=== PATIENT | male | born 1985 | race Hispanic/Latino ===

== ENCOUNTER 2019-08-22 18:20 | Emergency (ER) | payer SELFPAY ==
[2019-08-22 19:08] LABS: Absolute Lymphocytes (CBC) 1.3 K/uL (0.7-4.9); Basophils % 0.4 % (0-1.3); Lymphocytes % 12.9 % (15.3-44.8); MPV 7.9 fL (7.6-11.3); RBC Red Blood Cell Count 4.83 M/uL (4.33-5.43)
[2019-08-22 19:26] LABS: ALT/SGPT 91 U/L (12-78); AST/SGOT 80 U/L (15-37); Albumin 4.2 g/dL (3.4-5.0); Alkaline Phosphatase 104 U/L (45-117); BUN Blood Urea Nitrogen 12 mg/dL (7-18); Bicarbonate 30 mmol/L (21-32); Bilirubin Direct 0.3 mg/dL (0-0.2); Bilirubin Total 0.7 mg/dL (0.2-1.0); Glucose Level 137 mg/dL (74-106); Lipase 131 U/L (73-393); Potassium 3.3 mmol/L (3.5-5.1); Protein, Total 7.7 g/dL (6.4-8.2); Sodium Level 140 mmol/L (136-145)
--- NOTE | 2019-08-22 19:56 | RAD REPORT ---
EXAM DESCRIPTION: CTAbdomen Pelvis W Contrast - 08/22/2019 7:46 pm CLINICAL HISTORY: Abdominal pain. ABD PAIN COMPARISON: <Comparisons> TECHNIQUE: Biphasic CT imaging of the abdomen and pelvis was performed with 100 ml non-ionic IV cont rast. All CT scans are performed using dose optimization technique as appropriate and may include automated exposure control or mA/KV adjustment according to patient size. FINDINGS: The lung bases are clear.Cholelithiasis. The liver, spleen, pancreas, adrenal glands and kidneys are within normal limits. No bowel obstruction, free air, free fluid or abscess. Mild sigmoid diverticulosis without diverticul itis. The appendix is not identified as a discrete structure, however, no secondary findings of appen dicitis are identified. No evidence of significant lymphadenopathy. No suspicious bony findings. IMPRESSION: Cholelithiasis Sigmoid diverticulosis without diverticulitis.
--- NOTE | 2019-08-22 20:02 | ER ---
Nurse's Notes [facility] Name: Fahad Burk Age: 33 yrs Sex: Male : 1985 Arrival Date: 08/22/2019 Time: 18:22 Bed 7 Private MD: Diagnosis: Cholelithiasis Presentation: 08/22 18:32 Presenting complaint: Patient states: "Earlier I was having cramps in my back so I took aj1 Aleve and a hot shower, and in the shower I got dizzy and my stomach started hurting". Transition of care: patient was not received from another setting of care. Onset of symptoms was August 22, 2019. Risk Assessment: Do you want to hurt yourself or someone else? Patient reports no desire to harm self or others. Initial Sepsis Screen: Does the patient meet any 2 criteria? No. Patient's initial sepsis screen is negative. Does the patient have a suspected source of infection? No. Patient's initial sepsis screen is negative. Care prior to arrival: None. 18:32 Method Of Arrival: Ambulatory [facility] 18:32 Acuity: CRISSY 3 aj1 Triage Assessment: 18:33 General: Appears in no apparent distress. comfortable, Behavior is calm, cooperative, aj1 appropriate for age. Pain: Pain currently is 6 out of 10 on a pain scale. Neuro: Level of Consciousness is awake, alert, obeys commands. Cardiovascular: Patient's skin is warm and dry. Respiratory: Airway is patent Respiratory effort is even, unlabored, Respiratory pattern is regular, symmetrical. GI: Reports cramping. Historical: - Allergies: 18:33 No Known Allergies; aj1 - Home Meds: 18:33 None [Active]; aj1 - PMHx: 18:33 None; aj1 - PSHx: 18:33 None; aj1 - Immunization history:: Flu vaccine is not up to date. - Social history:: Smoking status: Patient/guardian denies using tobacco. - Ebola Screening: : Patient denies travel to an Ebola-affected area in the 21 days before illness onset. Screenin:46 Abuse screen: Denies threats or abuse. Denies injuries from another. Nutritional bp screening: No deficits noted. Tuberculosis screening: No symptoms or risk factors identified. Fall Risk None identified. Assessment: 18:33 General: Appears in no apparent distress. comfortable, Behavior is cooperative, bp appropriate for age, anxious. Pain: Complains of pain in abdomen. Neuro: No deficits noted. Cardiovascular: No deficits noted. Respiratory: No deficits noted. GI: Bowel sounds present X 4 quads. Abd is soft X 4 quads. : No signs and/or symptoms were reported regarding the genitourinary system. EENT: No deficits noted. Derm: No deficits noted. Musculoskeletal: No deficits noted. 19:31 General: Appears in no apparent distress. Behavior is cooperative, appropriate for age. ea Pain: Complains of pain in abdomen. Neuro: No deficits noted. Cardiovascular: Patient's skin is warm and dry. Respiratory: Airway is patent Respiratory effort is even, unlabored, Respiratory pattern is regular, symmetrical. Derm: Skin is pink, warm \\T\\ dry. Musculoskeletal: Circulation, motion, and sensation intact. 20:28 Reassessment: Patient and/or family updated on plan of care and expected duration. Pain ea level reassessed. Patient is alert, oriented x 3, equal unlabored respirations, skin warm/dry/pink. Discharge instruction given to patient, verbalized the understanding of instruction. Pt left ED ambulatory accompanied by family. Pt tolerating well. Vital Signs: 18:33 BP 125 / 87; Pulse 74; Resp 18; Temp 97.4; Pulse Ox 100% on R/A; Weight 68.04 kg (R); aj1 Height 5 ft. 7 in. (170.18 cm) (R); Pain 6/10; 19:32 BP 121 / 79; Pulse 71; Resp 18; Pulse Ox 100% on R/A; ea 20:11 BP 118 / 65; Pulse 88; Resp 18; Pulse Ox 100% on R/A; oe 18:33 Body Mass Index 23.49 (68.04 kg, 170.18 cm) aj1 ED Course: 18:22 Patient arrived in ED. ds1 18:32 Triage completed. aj1 18:33 Arm band placed on Patient placed in an exam room. aj1 18:35 Cameron Gong, JAYLEN is Primary Nurse. bp 18:37 Bobby Robles NP is PHCP. pm1 18:37 Ivan Mccabe MD is Attending Physician. pm1 18:46 Patient has correct armband on for positive identification. Bed in low position. Call bp light in reach. Side rails up X2. Adult w/ patient. 19:03 Warm blanket given. Pulse ox on. NIBP on. [facility] 19:03 Initial lab(s) drawn, by me, sent to lab. Inserted saline lock: 22 gauge in left 5 forearm, using aseptic technique. Blood collected. 19:04 Basic Metabolic Panel Sent. [facility] 19:04 CBC with Diff [address]. [facility] 19:04 Creatinine for Radiology Sent. [facility] 19:[address] [facility] 19:[address] [facility] 19:13 Radiology exam delayed due to lab results not completed at this time. (BUN/Creatinine). mw3 19:47 CT Abd/Pelvis - IV Contrast Only In Process Unspecified. EDMS 20:20 No provider procedures requiring assistance completed. ea 20:29 IV discontinued, intact, bleeding controlled, No redness/swelling at site. Pressure ea dressing applied. Administered Medications: No medications were administered Outcome: 20:01 Discharge ordered by MD. pm1 20:29 Discharged to home ambulatory, with family. ea 20:29 Condition: stable 20:29 Discharge instructions given to patient, Instructed on discharge instructions, follow up and referral plans. medication usage, Demonstrated understanding of instructions, follow-up care, medications, Prescriptions given X 1. 20:29 Patient left the ED. ea Signatures: Dispatcher [employer] EDMS Neli Tristan RN RN aj1 Gloria Gross ds1 Bobby Robles NP RESPITE COORDINATOR pm1 Kalin Hines [address] [facility] Lilia Hensley RN RN ea Peltier, Brian, RN RN bp Willis, Michelle mw3
--- NOTE | 2019-08-22 20:02 | EDPHYS ---
Physician Documentation [facility] Name: Fahad Burk Age: 33 yrs Sex: Male : 1985 Arrival Date: 08/22/2019 Time: 18:22 Bed 7 Private MD: ED Physician Ivan Mccabe HPI: 08/22 18:56 This 33 yrs old Male presents to ER via Ambulatory with complaints of pm1 Abdominal Pain. 18:56 The patient presents with abdominal pain in the upper abdomen. Onset: The pm1 symptoms/episode began/occurred just prior to arrival, today. The symptoms do not radiate. Associated signs and symptoms: Pertinent negatives: nausea, vomiting, and diarrhea, chest pain, dysuria, fever, shortness of breath, testicular pain. The symptoms are described as crampy. Modifying factors: the symptoms are aggravated by nothing. Severity of pain: in the emergency department the pain has improved markedly. The patient has not experienced similar symptoms in the past. The patient has not recently seen a physician. Historical: - Allergies: 18:33 No Known Allergies; aj1 - Home Meds: 18:33 None [Active]; aj1 - PMHx: 18:33 None; aj1 - PSHx: 18:33 None; aj1 - Immunization history:: Flu vaccine is not up to date. - Social history:: Smoking status: Patient/guardian denies using tobacco. - Ebola Screening: : Patient denies travel to an Ebola-affected area in the 21 days before illness onset. ROS: 18:56 Constitutional: Negative for fever, chills, and weight loss, Cardiovascular: Negative pm1 for chest pain, palpitations, and edema, Respiratory: Negative for shortness of breath, cough, wheezing, and pleuritic chest pain. 18:56 : Negative for injury, bleeding, discharge, and swelling, MS/Extremity: Negative for injury and deformity, Skin: Negative for injury, rash, and discoloration, Neuro: Negative for headache, weakness, numbness, tingling, and seizure. 18:56 Abdomen/GI: Positive for abdominal pain, of the right upper quadrant and left upper quadrant, Negative for nausea, vomiting, and diarrhea. 18:56 Back: Positive for of the low back area, pain. Exam: 18:56 Constitutional: This is a well developed, well nourished patient who is awake, alert, pm1 and in no acute distress. Head/Face: Normocephalic, atraumatic. Neck: Trachea midline, no thyromegaly or masses palpated, and no cervical lymphadenopathy. Supple, full range of motion without nuchal rigidity, or vertebral point tenderness. No Meningismus. Chest/axilla: Normal chest wall appearance and motion. Nontender with no deformity. No lesions are appreciated. Cardiovascular: Regular rate and rhythm with a normal S1 and S2. No gallops, murmurs, or rubs. Normal PMI, no JVD. No pulse deficits. Respiratory: Lungs have equal breath sounds bilaterally, clear to auscultation and percussion. No rales, rhonchi or wheezes noted. No increased work of breathing, no retractions or nasal flaring. Abdomen/GI: Soft, non-tender, with normal bowel sounds. No distension or tympany. No guarding or rebound. No evidence of tenderness throughout. Back: No spinal tenderness. No costovertebral tenderness. Full range of motion. Skin: Warm, dry with normal turgor. Normal color with no rashes, no lesions, and no evidence of cellulitis. MS/ Extremity: Pulses equal, no cyanosis. Neurovascular intact. Full, normal range of motion. 18:56 Neuro: Orientation: is normal, Motor: moves all fours, Gait: is steady, at a normal pace, without difficulty. Vital Signs: 18:33 BP 125 / 87; Pulse 74; Resp 18; Temp 97.4; Pulse Ox 100% on R/A; Weight 68.04 kg (R); aj1 Height 5 ft. 7 in. (170.18 cm) (R); Pain 6/10; 19:32 BP 121 / 79; Pulse 71; Resp 18; Pulse Ox 100% on R/A; ea 20:11 BP 118 / 65; Pulse 88; Resp 18; Pulse Ox 100% on R/A; oe 18:33 Body Mass Index 23.49 (68.04 kg, 170.18 cm) [facility] MDM: 18:45 Patient medically screened. pm1 18:51 Data reviewed: vital signs. Data interpreted: Pulse oximetry: on room air is 100 %. pm1 Interpretation: normal. 18:51 ED course: Patient offered pain medication for 5/10 pain. Patient refused. He feels pm1 comfortable right now. 20:01 Counseling: I had a detailed discussion with the patient and/or guardian regarding: the pm1 historical points, exam findings, and any diagnostic results supporting the discharge/admit diagnosis, lab results, radiology results, the need for outpatient follow up, to return to the emergency department if symptoms worsen or persist or if there are any questions or concerns that arise at home. 08/22 18:51 Order name: Basic Metabolic Panel; Complete Time: 19:29 pm1 08/22 18:51 Order name: CBC with Diff; Complete Time: 19:22 pm1 08/22 18:51 Order name: Creatinine for Radiology; Complete Time: 19:23 pm1 08/22 18:51 Order name: Hepatic Function; Complete Time: 19:29 pm1 08/22 18:51 Order name: Lipase; Complete Time: 19:29 pm1 08/22 18:51 Order name: CT Abd/Pelvis - IV Contrast Only; Complete Time: 19:58 pm1 08/22 18:51 Order name: IV Saline Lock; Complete Time: 19:04 pm1 08/22 18:51 Order name: Labs collected and sent; Complete Time: 19:05 pm1 Administered Medications: No medications were administered Disposition: 08/22/19 20:01 Discharged to Home. Impression: Cholelithiasis. - Condition is Stable. - Discharge Instructions: Diverticulosis, Cholelithiasis. - Prescriptions for Bentyl 20 mg Oral Tablet - take 1 tablet by ORAL route every 6 hours As needed; 20 tablet. - Medication Reconciliation Form, Thank You Letter, Antibiotic Education, Prescription Opioid Use form. - Follow up: Emergency Department; When: As needed; Reason: Worsening of condition. Follow up: Private Physician; When: 2 - 3 days; Reason: Recheck today's complaints, Continuance of care, Re-evaluation by your physician. - Problem is new. - Symptoms have improved. Addendum: 08/25/2019 18:51 Co-signature as Attending Physician, Ivan Mccabe MD Did not see or evaluate patient. p s1 Signing chart for administrative purposes. Not an endorsement of care. . Signatures: Dispatcher [facility] Neli Tristan RN RN aj1 Bobby Robles, ASSISTANT CHIEF TRAIN DISPATCHER ASSISTANT CHIEF TRAIN DISPATCHER pm1 Lilia Hensley RN RN ea Singer, Phillip, MD MD ps1 Corrections: (The following items were deleted from the chart) 08/22 20:29 20:01 08/22/2019 20:01 Discharged to Home. Impression: Cholelithiasis. Condition is ea Stable. Forms are Medication Reconciliation Form, Thank You Letter, Antibiotic Education, Prescription Opioid Use. Follow up: Emergency Department; When: As needed; Reason: Worsening of condition. Follow up: Private Physician; When: 2 - 3 days; Reason: Recheck today's complaints, Continuance of care, Re-evaluation by your physician. Problem is new. Symptoms have improved. pm1
[2019-08-22 20:36] VITALS: TEMP 97.4; O2SAT 100
[2019-08-22 20:38] VITALS: BP 118/65
== END 2019-08-22 20:29 | disposition home or self-care (01) ==
LOC: ER 18:20
DX: K80.20 Calculus of gallbladder without cholecystitis without obstruction (principal)
CPT/HCPCS: 36415; 74177; 80048; 80076; 83690; 85025; 99284; Q9967